=== PATIENT | female | born 1975 | race Caucasian/White ===

== ENCOUNTER → 2016-12-29 | Outpatient (CLI) | payer OTHER ==
--- NOTE | 2016-12-29 12:15 | REP ---
ORBITS, TWO VIEWS: HISTORY: Foreign body. The sinuses are clear. There is no fracture or bone lesion. There is no radiopaque foreign body. IMPRESSION: There is no radiopaque foreign body. Signed by Ron Ortez MD 12/29/2016 12:15 P
== END ==
LOC: M RAD 11:36
PROVIDERS: ATTEND Psychiatry & Neurology Neurology
DX: H57.9 Unspecified disorder of eye and adnexa (principal)

== ENCOUNTER → 2019-04-03 | Outpatient (REF) | payer OTHER | LOC: M LAB LCGH 12:19 | PROVIDERS: ATTEND Obstetrics & Gynecology | DX: Z12.4 Encounter for screening for malignant neoplasm of cervix (principal) ==